=== PATIENT | female | born 2000 | race Caucasian/White ===

== ENCOUNTER 2023-06-19 00:55 | Emergency (ER) | payer BC ==
[~2023-06-19] VITALS: Ht 167.6 cm; Wt 90.9 kg
[2023-06-19 02:00] VITALS: BP 140/85; PULSE 81; TEMP 98.3
== END 2023-06-19 02:00 | disposition home or self-care (01) ==
LOC: COL.ER 00:55
DX: J02.9 Acute pharyngitis, unspecified (principal)